=== PATIENT | male | born 1930 | race Caucasian/White ===

== ENCOUNTER 2018-02-05 09:47 | Observation (INO) ==
--- NOTE | 2018-02-05 10:12 | Emergency Department Note ---
Disposition Clinical Impression: Dizziness Headache Qualifiers: Headache type: unspecified Headache chronicity pattern: acute headache Intractability: not intractable Qualified Code(s): R51 - Headache Disposition: Admitted As Inpatient Condition: Undetermined Referrals: Lee Desai MD [Primary Care Provider] - Forms: ED Satisfaction Letter Time of Disposition: 11:41 Dizziness HPI - General Chief Complaint: ED Dizziness Stated Complaint: sudden onset dizziness Time Seen by Provider: 02/05/18 09:59 Source: patient Mode of arrival: wheelchair Limitations: no limitations Nursing Notes Reviewed: Yes Vital Signs Reviewed: Yes - History of Present Illness HPI Narrative: 87-year-old male with history of hypertension arrives to the emergency department complaining of onset of dizziness at roughly 2 AM last night. The patient also states that he had an episode he thinks earlier in the evening. The patient stood up and experienced this dizziness. He had no other associated symptoms area denies any chest pain, difficulty breathing, numbness, paresthesias, weakness in one side versus the other. The patient is complaining of a left frontal headache. He states that is new. Patient denies any previous history of dizziness like this in the past. No history of [place] or CVA in the past. Patient is resting comfortably at this time. The patient has an NIH of 0. The patient's symptoms started at least 8 hours ago so we will not activate a stroke alert. - Related Data Home Medications Medication Instructions Recorded Confirmed Allopurinol [Zyloprim 100 MG] 100 mg PO DAILY 02/05/18 02/05/18 Aspirin [Lo-Dose Aspirin EC] 81 mg PO DAILY 02/05/18 02/05/18 Atorvastatin [Lipitor] 10 mg PO DAILY 02/05/18 02/05/18 Dicyclomine [Bentyl] 20 mg PO BID 02/05/18 02/05/18 Docusate Sodium [Dok] 100 mg PO DAILY 02/05/18 02/05/18 Ergocalciferol (VITAMIN D2) 400 unit PO DAILY 02/05/18 02/05/18 [Vitamin D] Fish Oil/Dha/Epa [Fish Oil 1,200 1 cap PO DAILY 02/05/18 02/05/18 mg Fish Oil] Furosemide [Lasix] 20 mg PO DAILY 02/05/18 02/05/18 Glucosamine/D3/Boswellia Roselia 1 tab PO BID 02/05/18 02/05/18 [Osteo Bi-Flex Tablet] Insulin Glargine,Hum.rec.anlog 10 - 20 unit SQ HS 02/05/18 02/05/18 [Lantus Solostar] Insulin LISPRO [Humalog Kwikpen 4 - 6 unit SQ TID 02/05/18 02/05/18 U-100] Omeprazole [PriLOSEC] 20 mg PO DAILY 02/05/18 02/05/18 amLODIPine [Norvasc] 5 mg PO DAILY 02/05/18 02/05/18 Allergies Allergy/AdvReac Type Severity Reaction Status Date / Time No Known Allergies Allergy Verified 02/05/18 11:38 All systems ED: reviewed and negative except as stated. Constitutional: Denies: fever, chills, weakness ENT ED: Denies: congestion Cardiovascular: Denies: chest pain Respiratory: Denies: dyspnea Gastrointestinal: Denies: abdominal pain, nausea, vomiting Genitourinary: Denies: urgency, dysuria Musculoskeletal: Denies: back pain, neck pain Integumentary: Denies: rash Neurological: Reports: headache, vertigo. Denies: weakness, numbness, paresthesias, confusion, abnormal gait Psychiatric: Denies: anxiety Past Medical History - Past Medical History Attestation: Yes The following information was validated with the patient. Source: patient, old records reviewed Medical history: Reports: diabetes, hypertension, renal disease Surgical history: Reports: non-contributory Psychiatric history: Reports: no psych history - Social History Smoking Status: Never smoker Smokeless Tobacco Status: No Alcohol use: Reports: none Drug use: Reports: none Physical Exam - General Limitations: no limitations General appearance: alert, in no apparent distress - Head Head exam: atraumatic, normocephalic, normal inspection - Eye Eye exam: Present: normal appearance, PERRL, EOMI - ENT ENT exam: normal exam, normal oropharynx, mucous membranes moist - Neck Neck exam: Present: normal inspection, full ROM, trachea midline - Chest Chest inspection: Present: normal inspection, symmetric chest wall rise - Respiratory Respiratory exam: Present: normal lung sounds bilaterally - Cardiovascular Cardiovascular exam: Present: normal rhythm, bradycardia, normal heart sounds - Abdominal Exam Abdominal exam: Present: soft, Non-Tender. Absent: tenderness, distention, guarding, rebound, rigidity - Extremities Exam Extremities exam: Present: normal inspection, full ROM. Absent: tenderness, pedal edema - Neurological Exam Neurological exam: Present: alert, oriented X3, CN II-XII intact. Absent: motor sensory deficit - Expanded Neurological Exam Patient oriented to: Present: person, place, time Speech: Present: fluid speech Cranial nerves: EOM function (II, III, IV, ): Normal, facial sensation (V): Normal, facial palsy (VII): Normal Cerebellar function: finger to nose: Normal Motor strength - LUE: 5/5 Motor strength - RUE: 5/5 Motor strength - LLE: 5/5 Motor strength - RLE: 5/5 Sensory exam upper extremity: light touch: Normal Sensory exam lower extremity: light touch: Normal Coma Scale Eye Opening: Spontaneous Coma Scale Motor Response: Obeys Commands Coma Scale Verbal Response: Oriented Coma Scale Total: 15 - Skin Skin exam: Present: warm, dry, intact, normal color - Other Other exam information: HINTS exam negative. Course Vital Signs Temperature 97.5 F L 02/05/18 09:49 Pulse Rate 55 02/05/18 09:49 Respiratory Rate 18 02/05/18 09:49 Blood Pressure 178/110 02/05/18 09:49 O2 Sat by Pulse Oximetry 96 02/05/18 09:49 Temperature 97.5 F L 02/05/18 09:49 Pulse Rate 58 02/05/18 11:39 Respiratory Rate 21 02/05/18 11:39 Blood Pressure 181/91 02/05/18 11:39 O2 Sat by Pulse Oximetry 100 02/05/18 11:39 Oxygen Delivery Oxygen Delivery Room Air Dizziness - [facility] Narrative Medical decision making narrative: Workup in the emergency department demonstrates no acute process. The patient is slightly hypertensive and bradycardic. The patient always sits in the 60s to 50s heart rate according to his record. He does have a bigeminal type pattern on EKG. No ST elevation or ST depression. Labs are fairly unremarkable with the exception of the patient's kidney function which is baseline for him. He has no other neurologic deficits. Given the patient's severe dizziness, we will admit the patient to the hospital at this time for further workup and care likely further imaging. Patient was made aware and agrees to plan. No further questions or concerns noted at this time. The patient was given aspirin as well as labetalol for his blood pressure. He will be admitted to the hospital. Accepted by Dr. Sykes. - Lab Data Lab results reviewed: Yes I reviewed the patient's lab results. Result diagrams: 02/05/18 10:19 02/05/18 10:19 Lab Results 02/05/18 02/05/18 Range/Units 10:19 10:19 WBC 7.8 (4.3-11.1) K/mcL RBC 4.14 L (4.19-5.50) M/mcL Hgb 13.6 (12.9-16.9) g/dL Hct 40.4 (37.5-50.1) % MCV 97.6 (83.0-100.0) fL MCH 32.9 (28.0-33.3) pg MCHC 33.7 (31.6-35.5) g/dL RDW 13.0 (11.5-14.5) % Plt Count 224 (140-400) K/mcL MPV 9.9 (9.4-12.4) fL Immature Gran % 0.4 (0-4) % Seg Neutrophils % 75.9 % Lymphocytes % 17.5 % Monocytes % 5.2 % Eosinophils % 0.9 % Basophils % 0.1 % Neutrophils # 5.9 (1.6-8.9) K/mcL Lymphocytes # 1.4 (0.6-4.6) K/mcL Monocytes # 0.4 (0.0-1.3) K/mcL Eosinophils # 0.1 (0.0-0.6) K/mcL Basophils # 0.0 (0.0-0.2) K/mcL Sodium 136 (136-145) mEq/L Potassium 4.5 (3.5-5.1) mEq/L Chloride 103 (98-107) mEq/L Carbon Dioxide 25 (23-29) mEq/L BUN 39 H (8-23) mg/dL Creatinine 1.46 H (0.70-1.30) mg/dL Est GFR ( Amer) 55 L (> 60) Est GFR (Non-Af Amer) 45 L (> 60) BUN/Creatinine Ratio 27 H (6-26) Glucose 254 H (70-105) mg/dL Calculated Osmolality 300 (280-300) Calcium 9.5 (8.6-10.3) mg/dL Troponin I 0.03 (< 0.04) ng/mL - Radiology Data Radiology results reviewed: Yes I reviewed the patient's radiology results. Chest X-Ray 02/05/18 10:06 IMPRESSION: No acute cardiopulmonary disease. D/ / Fermín French MD / Fermín French MD Interpreting Provider: Fermín French MD Head CT 02/05/18 10:06 IMPRESSION: 1. No acute intracranial abnormality. 2. Mild age-appropriate diffuse atrophy with minimal chronic small vessel ischemic changes. D/ / Basim Pacheco MD / Basim Pacheco MD Interpreting Provider: Basim Pacheco MD - EKG Data EKG attestation: Yes I reviewed and interpreted this EKG. EKG results narrative: Heart rate 61 bpm. Sinus Bradycardia with a bigeminal type pattern. No ST elevation or ST depression noted. Patient's bigeminal pattern is new for the patient. No previous symptoms or findings on EKG from 02/19/2013.
--- NOTE | 2018-02-05 10:21 | Emergency Department Note ---
Disposition Clinical Impression: Dizziness, Headache Disposition: Admitted As Inpatient Condition: Undetermined Referrals: Lee Desai MD [Primary Care Provider] - Forms: ED Satisfaction Letter General Adult HPI - General Chief complaint: ED Dizziness Stated complaint: sudden onset dizziness Time Seen by Provider: 02/05/18 09:59 Source: patient Mode of arrival: wheelchair Limitations: no limitations Nursing Notes Reviewed: Yes Vital Signs Reviewed: Yes - History of Present Illness Pain Scale: 0 - Related Data Home Medications Medication Instructions Recorded Confirmed Allopurinol [Zyloprim 100 MG] 100 mg PO DAILY 02/05/18 02/05/18 Aspirin [Lo-Dose Aspirin EC] 81 mg PO DAILY 02/05/18 02/05/18 Atorvastatin [Lipitor] 10 mg PO DAILY 02/05/18 02/05/18 Dicyclomine [Bentyl] 20 mg PO BID 02/05/18 02/05/18 Docusate Sodium [Dok] 100 mg PO DAILY 02/05/18 02/05/18 Ergocalciferol (VITAMIN D2) 400 unit PO DAILY 02/05/18 02/05/18 [Vitamin D] Fish Oil/Dha/Epa [Fish Oil 1,200 1 cap PO DAILY 02/05/18 02/05/18 mg Fish Oil] Furosemide [Lasix] 20 mg PO DAILY 02/05/18 02/05/18 Glucosamine/D3/Boswellia Roselia 1 tab PO BID 02/05/18 02/05/18 [Osteo Bi-Flex Tablet] Insulin Glargine,Hum.rec.anlog 10 - 20 unit SQ HS 02/05/18 02/05/18 [Lantus Solostar] Insulin LISPRO [Humalog Kwikpen 4 - 6 unit SQ TID 02/05/18 02/05/18 U-100] Omeprazole [PriLOSEC] 20 mg PO DAILY 02/05/18 02/05/18 amLODIPine [Norvasc] 5 mg PO DAILY 02/05/18 02/05/18 Allergies Allergy/AdvReac Type Severity Reaction Status Date / Time No Known Allergies Allergy Verified 02/05/18 11:38 Constitutional: Denies: fever, chills, weakness ENT ED: Denies: congestion Cardiovascular: Denies: chest pain Respiratory: Denies: dyspnea Gastrointestinal: Denies: abdominal pain, nausea, vomiting Genitourinary: Denies: urgency, dysuria Musculoskeletal: Denies: back pain, neck pain Integumentary: Denies: rash Neurological: Reports: headache, vertigo. Denies: weakness, numbness, paresthesias, confusion, abnormal gait Psychiatric: Denies: anxiety Past Medical History - Past Medical History Medical history: Reports: diabetes, hypertension, renal disease Surgical history: Reports: non-contributory Psychiatric history: Reports: no psych history - Social History Smoking Status: Never smoker Smokeless Tobacco Status: No Alcohol use: Reports: none Drug use: Reports: none Physical Exam - General Limitations: no limitations General appearance: alert, in no apparent distress Course Vital Signs Temperature 97.5 F L 02/05/18 09:49 Pulse Rate 55 02/05/18 09:49 Respiratory Rate 18 02/05/18 09:49 Blood Pressure 178/110 02/05/18 09:49 O2 Sat by Pulse Oximetry 96 02/05/18 09:49 Temperature 97.5 F L 02/05/18 09:49 Pulse Rate 58 02/05/18 11:39 Respiratory Rate 21 02/05/18 11:39 Blood Pressure 181/91 02/05/18 11:39 O2 Sat by Pulse Oximetry 100 02/05/18 11:39 Oxygen Delivery Oxygen Delivery Room Air Medical Decision Making - MDM Narrative Medical decision making narrative: This documentation is done with the assistance of Dragon dictation. Despite efforts made to ensure accuracy, there may be inaccuracies in spine specialist or spelling and typographical errors. Chest X-Ray 02/05/18 10:06 IMPRESSION: No acute cardiopulmonary disease. D/ / Fermín French MD / Fermín French MD Interpreting Provider: Fermín French MD 1130 hrs.: Patient's labs are returning. Waiting on his CT. That admission. He is stable at this time. Chest X-Ray 02/05/18 10:06 IMPRESSION: No acute cardiopulmonary disease. D/ / Fermín French MD / Fermín French MD Interpreting Provider: Fermín French MD Head CT 02/05/18 10:06 IMPRESSION: 1. No acute intracranial abnormality. 2. Mild age-appropriate diffuse atrophy with minimal chronic small vessel ischemic changes. D/ / Basim Pacheco MD / Basim Pacheco MD Interpreting Provider: Basim Pacheco MD 1130 hrs.: We will treat his elevated blood pressure. Speaking with hospitalist for admission. Patient's in agreement with this plan. Impression is weakness, ataxia and dizziness rule out CVA. 1155 hrs.: Possible says accepted patient and requested an MRI which we will order and he can have that done on the floor. - Lab Data Result diagrams: 02/05/18 10:19 02/05/18 10:19 Lab Results 02/05/18 02/05/18 02/05/18 Range/Units 10:19 10:19 11:47 WBC 7.8 (4.3-11.1) K/mcL RBC 4.14 L (4.19-5.50) M/mcL Hgb 13.6 (12.9-16.9) g/dL Hct 40.4 (37.5-50.1) % MCV 97.6 (83.0-100.0) fL MCH 32.9 (28.0-33.3) pg MCHC 33.7 (31.6-35.5) g/dL RDW 13.0 (11.5-14.5) % Plt Count 224 (140-400) K/mcL MPV 9.9 (9.4-12.4) fL Immature Gran % 0.4 (0-4) % Seg Neutrophils % 75.9 % Lymphocytes % 17.5 % Monocytes % 5.2 % Eosinophils % 0.9 % Basophils % 0.1 % Neutrophils # 5.9 (1.6-8.9) K/mcL Lymphocytes # 1.4 (0.6-4.6) K/mcL Monocytes # 0.4 (0.0-1.3) K/mcL Eosinophils # 0.1 (0.0-0.6) K/mcL Basophils # 0.0 (0.0-0.2) K/mcL Sodium 136 (136-145) mEq/L Potassium 4.5 (3.5-5.1) mEq/L Chloride 103 (98-107) mEq/L Carbon Dioxide 25 (23-29) mEq/L BUN 39 H (8-23) mg/dL Creatinine 1.46 H (0.70-1.30) mg/dL Est GFR ( Amer) 55 L (> 60) Est GFR (Non-Af Amer) 45 L (> 60) BUN/Creatinine Ratio 27 H (6-26) Glucose 254 H (70-105) mg/dL POC Glucose 195 H (70-99) mg/dL Calculated Osmolality 300 (280-300) Calcium 9.5 (8.6-10.3) mg/dL Troponin I 0.03 (< 0.04) ng/mL Critical Care Time Critical Care Time: Yes Total Critical Care Time: 30 Attestation: Critical care time is excluding any separately billable procedures. Attestation Statement - Attestation Attestation: I examined this patient and my medical decision-making was reviewed with the Resident Physician. I agree with the documented findings, disposition and treatment plan as described except to the extent set forth below. Patient seen on arrival by myself and Dr. Espinoza with EMS. Patient had sudden onset of dizziness last evening. He states this is been more than 8 hours ago. He says he thinks he has something with his and her ear. He has positive Agrcia-Williamson maneuver. and his LENY exam is negative. I think this is more of a central process. We will CT has had check labs reassess and most likely admission. He is in agreement with this plan.
[2018-02-05 10:58] LABS: Basophils % 0.1 %; Eosinophils # 0.1 K/mcL (0.0-0.6); Eosinophils % 0.9 %; Hematocrit 40.4 % (37.5-50.1); Hemoglobin 13.6 g/dL (12.9-16.9); Immature Granulocytes % 0.4 % (0-4); Lymphocytes # 1.4 K/mcL (0.6-4.6); Lymphocytes % 17.5 %; Mean Corpuscular HGB Conc 33.7 g/dL (31.6-35.5); Mean Corpuscular Hemoglobin 32.9 pg (28.0-33.3); Mean Corpuscular Volume 97.6 fL (83.0-100.0); Mean Platelet Volume 9.9 fL (9.4-12.4); Monocytes # 0.4 K/mcL (0.0-1.3); Monocytes % 5.2 %; Neutrophils # 5.9 K/mcL (1.6-8.9); Platelet Count 224 K/mcL (140-400); Red Blood Count 4.14 M/mcL (4.19-5.50); Segmented Neutrophils % 75.9 %
[2018-02-05 11:17] LABS: Troponin I 0.03 ng/mL (< 0.04)
[2018-02-05 11:20] LABS: Calcium 9.5 mg/dL (8.6-10.3); Potassium 4.5 mEq/L (3.5-5.1)
[2018-02-05] MEDS ORDERED: *HR* Labetalol 20 MG/4 ML SYRINGE IVP STA (11:35)
[2018-02-05] MEDS ORDERED: Aspirin 325 MG TABLET PO ONE (11:38)
[2018-02-05] MEDS ORDERED: Acetaminophen 325 MG TABLET PO PRN (12:53)
[2018-02-05] MEDS ORDERED: *HR* HYDROcodone/Acet 5/325 mg TABLET PO PRN (12:53)
[2018-02-05] MEDS ORDERED: Naloxone 0.4 MG/ML INJ IVP PRN (12:53)
[2018-02-05] MEDS ORDERED: Dextrose Gel 15 GM/37.5 ML TUBE PO PRN ×2 (13:04)
[2018-02-05] MEDS ORDERED: D5% in Water 1,000 ML IVC PRN (13:04)
[2018-02-05] MEDS ORDERED: *HR* Dextrose 50 % in Water (Syg) 50 ML SYRINGE IVP PRN (13:04)
--- NOTE | 2018-02-05 13:47 | Internal Med History&Physical ---
<BeauAlexi Otoole - Last Filed: 02/05/18 14:13> Date of Encounter: 02/05/18 Time of Encounter: 12:30 Internal Medicine - H&P: HPI Chief complaint: Dizziness/Pre-syncope Admitted From: Emergency Dept Plans for Post Hospital Care: Home History of present illness: Mr. Naranjo is a 87 year old male w/PMH of diabetes controlled with insulin, hypertension, HLD, gout, and CKD presents from the ED w/CC of severe dizziness and feelings of pre-syncope this morning. Pt. states he experienced sx while sitting up in bed and standing up. Sx alleviated when he laid down. Aggravating factors of positional changes. Denies previous hx or hx of CVA/TIA/Vertigo. Pt. does report irregular HR that he states is transient and is not anticoagulated for. Reports TOM and occasional palpitations but denies vision changes, sinus pressure/congestion, cough, chest congestion, nausea, vomiting, recent illness, chest pain, SOB, abdominal pain, diarrhea, constipation, numbness, tingling, unusual bleeding, or syncope Past Med Surg Social Fam HX - Past Medical History Source: patient, old records reviewed Medical history: diabetes, hypertension, renal disease, other (Gout) Psychiatric history: no psych history - Past Surgical History Surgical History: no surgical history - Social History Smoking Status: Never smoker Smokeless Tobacco Status: No Alcohol use: none Drug use: none Occupational status: retired Current living situation: Home Activity Level: Uses cane/walker Recent Out of Country Travel Within the Last 8 Weeks: No Exposure or Possible Exposure to Illness During Travel: No - Family History Father Race: Family Member Ethnicity: Non- Living Status: Age at : 80 Cause of : [place] Hx Family Cardiac Disorders: Yes ([place]) Hx Family Endocrine Disorder: Yes (DM) Mother Race: Family Member Ethnicity: Non- Living Status: Age at : 89 Cause of : Gastric problems Hx Family GI Disorders: Yes (Gastric/bowel issues) Brother Race: Family Member Ethnicity: Non- Living Status: Age at : 50 Cause of : Suicide Hx Family Psychosocial Disorders: Yes (Depression/Suicide) Sister Race: Family Member Ethnicity: Non- Living Status: Cause of : Meningitis Internal Medicine - H&P: Meds Allopurinol [Zyloprim 100 MG] 100 mg PO DAILY 02/05/18 [History] Aspirin [Lo-Dose Aspirin EC] 81 mg PO DAILY 02/05/18 [History] Atorvastatin [Lipitor] 10 mg PO DAILY 02/05/18 [History] Dicyclomine [Bentyl] 20 mg PO BID 02/05/18 [History] Docusate Sodium [Dok] 100 mg PO DAILY 02/05/18 [History] Ergocalciferol (VITAMIN D2) [Vitamin D] 400 unit PO DAILY 02/05/18 [History] Fish Oil/Dha/Epa [Fish Oil 1,200 mg Fish Oil] 1 cap PO DAILY 02/05/18 [History] Furosemide [Lasix] 20 mg PO DAILY 02/05/18 [History] Glucosamine/D3/Boswellia Roselia [Osteo Bi-Flex Tablet] 1 tab PO BID 02/05/18 [ History] Insulin Glargine,Hum.rec.anlog [Lantus Solostar] 10 - 20 unit SQ HS 02/05/18 [ History] Insulin LISPRO [Humalog Kwikpen U-100] 4 - 6 unit SQ TID 02/05/18 [History] Omeprazole [PriLOSEC] 20 mg PO DAILY 02/05/18 [History] amLODIPine [Norvasc] 5 mg PO DAILY 02/05/18 [History] 3 Allergy/AdvReac Type Severity Reaction Status Date / Time No Known Allergies Allergy Verified 02/05/18 11:38 All Systems PM: A 10-system review of systems was performed and is negative for pertinent findings except as documented above in the HPI. - Constitutional Constitutional: no chills, no fever(s), no night sweats - EENT Eyes: no change in vision, no discharge, no pain, no photophobia Ears: no ear discharge, no ear pain, no tinnitus Nose, mouth and throat: no dysphagia, no nasal discharge, no neck pain, no sore throat - Breasts Breasts: as per HPI - Cardiovascular Cardiovascular ROS IM: as per HPI, irregular heart rhythm, lightheadedness, palpitations (Intermittent and transient), no chest pain, no diaphoresis, no dyspnea, no syncope - Respiratory Respiratory: as per HPI, no cough, no dyspnea, no wheezing, no excessive phlegm production - Gastrointestinal Gastrointestinal: no abdominal pain, no diarrhea, no hematemesis, no hematochezia, no melena, no nausea, no vomiting - Genitourinary Genitourinary ROS male: as per HPI - Musculoskeletal Musculoskeletal ROS IM: no numbness, no tingling - Integumentary Integumentary IM: no rash, no unusual bruising - Neurological Neurological ROS: as per HPI, disequilibrium, dizziness, headache(s), no confusion, no convulsions, no focal weakness, no numbness, no tingling, no tremor(s) - Psychiatric Psychiatric: as per HPI - Endocrine Endocrine IM: as per HPI - Hematologic/Lymphatic Hematologic/Lymphatic: no easy bruising - Allergic/Immunologic Allergic/Immunologic: as per HPI - Constitutional Vitals: Temp Pulse Resp BP Pulse Ox 98 F 56 20 147/73 97 02/05/18 13:00 02/05/18 13:00 02/05/18 13:00 02/05/18 13:00 02/05/18 13:05 General appearance: Present: cooperative, A&O X 3, pleasant, no acute distress, answers questions appropriately - Head Head exam: Present: atraumatic, normocephalic - Eye Eye exam: Present: PERRL, conjuntiva pink, sclera anicteric Pupils: Present: PERRL - ENT ENT exam: Present: normal exam - Neck Neck exam general surgery: Present: normal inspection, supple, trachea midline. Absent: lymphadenopathy - Respiratory Respiratory exam: Present: CTAB. Absent: accessory muscle use, rales, rhonchi, wheezes - Cardiovascular Cardiovascular exam: Present: irregular rhythm - GI/Abdominal GI/Abdominal exam: Present: normal bowel sounds, soft, no peritoneal signs. Absent: distended, tenderness - Rectal Rectal exam: Present: deferred - Additional comments: exam deferred. - Extremities Exam Extremities exam: Present: warm, radial pulses palpable and symmetrical. Absent : calf tenderness, cyanotic, pedal edema - Back Exam Back exam: Present: normal inspection - Neurological Exam Neurological exam: Present: alert, CN II-XII intact, oriented X3, no focal deficits. Absent: pronater drift, facial droop, speech deficit - Psychiatric Psychiatric exam: Present: normal affect, normal mood - Skin Skin exam: Present: dry, intact Internal Med - H&P Results - Labs CBC & Chem 7: 02/05/18 10:19 02/05/18 10:19 - Diagnostic Studies CT scan - head Additional comments: Impressions Head CT 02/05/18 10:06 IMPRESSION: 1. No acute intracranial abnormality. 2. Mild age-appropriate diffuse atrophy with minimal chronic small vessel ischemic changes. D/ / Basim Pacheco MD / Basim Pacheco MD Interpreting Provider: Basim Pacheco MD Chest x-ray Additional comments: Impressions Chest X-Ray 02/05/18 10:06 IMPRESSION: No acute cardiopulmonary disease. D/ / Fermín French MD / Fermín French MD Interpreting Provider: Fermín French MD - Assessment and plan (1) Dizziness Current Visit: Yes Status: Acute Assessment and plan: Acute dizziness/vertigo-type sx that began this morning. Denies previous hx or hx of CVA/TIA/Vertigo. Reports TOM w/sx. Falls/safety precautions. Orthostatic BPs/VS ordered. Bilateral carotid Dopplers ordered. CT of head/brain unremarkable. MRA/MRI of head/brain ordered. Stair-step pain medications for pain mgmt. Neurology consult ordered and discussed w/Dr. Sauer and I appreciate the consult. Pt. discussed w/Dr. Blackman who agrees w/plan of care. Pt. is high risk for further morbidity and sx d/t new onset of dizziness/pre-syncope, irregular HR w/o anticoagulation, hx, and risk factors. Observation. (2) Headache Current Visit: Yes Status: Acute Assessment and plan: Acute headache r/t current dizziness and vertigo-type sx. Denies hx of TOM. CT of head/brain unremarkable. MRA/MRI of head/brain ordered. Stair-step pain medications for pain mgmt. Neurology consult ordered and discussed w/Dr. Sauer and I appreciate the consult. Qualifiers: Headache type: unspecified Headache chronicity pattern: acute headache Intractability: not intractable Qualified Code(s): R51 - Headache (3) Diabetes Current Visit: Yes Status: Chronic Assessment and plan: Hx of chronic diabetes controlled w/insulin. Will continue pts. HS dosing of insulin and add low-dose correction insulin sliding scale w/hypoglycemic protocol. A1c in a.m. labs. BG checks ACHS. Qualifiers: Diabetes mellitus type: type 2 Diabetes mellitus skilled nursing insulin use: unspecified skilled nursing insulin use status Diabetes mellitus complication status : with unspecified complications Qualified Code(s): E11.8 - Type 2 diabetes mellitus with unspecified complications (4) HTN (hypertension) Current Visit: Yes Status: Chronic Assessment and plan: Hx of chronic HTN. Monitor pt. and VS. Continue pts. Norvasc. Qualifiers: Hypertension type: essential hypertension Qualified Code(s): I10 - Essential (primary) hypertension (5) HLD (hyperlipidemia) Current Visit: Yes Status: Chronic Assessment and plan: Hx of chronic HLD. Lipid panel in a.m. labs. Continue pts. Lipitor. Qualifiers: Hyperlipidemia type: pure hypercholesterolemia Qualified Code(s): E78.00 - Pure hypercholesterolemia, unspecified; E78.0 - Pure hypercholesterolemia (6) CKD (chronic kidney disease) stage 3, GFR 30-59 ml/min Current Visit: Yes Status: Chronic Assessment and plan: Hx of chronic CKD. Currently stage III w/GFR of 45 and creatinine of 1.46. Will use IV fluids judiciously and avoid nephrotoxins. Monitor I&O. (7) Gout Current Visit: Yes Status: Chronic Assessment and plan: Hx of chronic gout. Continue pts. Allopurinol. Qualifiers: Gout site: unspecified site Gout etiology: due to renal impairment Chronicity: unspecified Qualified Code(s): M10.30 - Gout due to renal impairment, unspecified site (8) DVT prophylaxis Current Visit: Yes Status: Acute Assessment and plan: Heparin 5,000 units SQ Q8 for DVT prophylaxis. Monitor pt. for signs of bleeding. (9) Irregular heart beat Current Visit: Yes Status: Acute Assessment and plan: Acute on chronic irregular HR that pt. states he has had for some time and is intermittent/transient. Reports some palpitations that resolve. Denies hx of anticoagulation. Takes 81 mg aspirin daily. Echocardiogram ordered. EKG. Cardiology consult ordered and discussed w/Dr. Campuzano regarding irregular HR and I appreciate the consult. Continue daily aspirin. Continuous cardiac telemetry. - Time Spent With Patient Total time spent is greater than 50% in coordination of care (as documented) at patient's floor/unit and/or counseling patient: 25 - 35 minutes <Joaquin Blackman - Last Filed: 02/05/18 23:48> Date of Encounter: 02/05/18 Internal Medicine - H&P: HPI History of present illness: Mr. Naranjo is a 87 year old male All Systems PM: A 10-system review of systems was performed and is negative for pertinent findings except as documented above in the HPI. - Constitutional Vitals: Temp Pulse Resp BP Pulse Ox 97.5 F L 57 16 186/84 98 02/05/18 19:17 02/05/18 19:17 02/05/18 19:17 02/05/18 19:17 02/05/18 19:17 Internal Med - H&P Results - Labs CBC & Chem 7: 02/05/18 10:19 02/05/18 10:19 - Attending Attestation I examined this patient and my medical decision-making was reviewed with the Resident Physician/[employer] ASSEMBLER. I agree with the documented findings, disposition and treatment plan as described except to the extent set forth below. I do been examined this patient along with the patient's rn discharge. At this point etiology for the presenting symptom is unclear. We will do extensive workup and follow-up with the patient. - Assessment and plan (1) Dizziness Current Visit: Yes Status: Acute (2) Headache Current Visit: Yes Status: Acute Qualifiers: Headache type: unspecified Headache chronicity pattern: acute headache Intractability: not intractable Qualified Code(s): R51 - Headache (3) Diabetes Current Visit: Yes Status: Chronic Qualifiers: Diabetes mellitus type: type 2 Diabetes mellitus superintendent [employer] insulin use: unspecified skilled nursing insulin use status Diabetes mellitus complication status : with unspecified complications Qualified Code(s): E11.8 - Type 2 diabetes mellitus with unspecified complications (4) HTN (hypertension) Current Visit: Yes Status: Chronic Qualifiers: Hypertension type: essential hypertension Qualified Code(s): I10 - Essential (primary) hypertension (5) CKD (chronic kidney disease) stage 3, GFR 30-59 ml/min Current Visit: Yes Status: Chronic (6) DVT prophylaxis Current Visit: Yes Status: Acute (7) Gout Current Visit: Yes Status: Chronic Qualifiers: Gout site: unspecified site Gout etiology: due to renal impairment Chronicity: unspecified Qualified Code(s): M10.30 - Gout due to renal impairment, unspecified site (8) HLD (hyperlipidemia) Current Visit: Yes Status: Chronic Qualifiers: Hyperlipidemia type: pure hypercholesterolemia Qualified Code(s): E78.00 - Pure hypercholesterolemia, unspecified; E78.0 - Pure hypercholesterolemia (9) Irregular heart beat Current Visit: Yes Status: Acute - Time Spent With Patient Total time spent is greater than 50% in coordination of care (as documented) at patient's floor/unit and/or counseling patient:
[2018-02-05] MEDS: *HR* Heparin 5,000 UNIT/ML VIAL SQ SCH ×2 (15:27→21:50)
[2018-02-05] MEDS: 0.9 % Sodium Chloride 1,000 ML IVC SCH (15:27)
[2018-02-05] MEDS: Insulin LISPRO 300 UNITS/3 ML VIAL SQ SCH ×3 (17:16→21:51)
[2018-02-05] MEDS: Insulin DETEMIR 100 UNIT/ML X5UNITS SQ SCH (21:51)
[2018-02-06 03:16] LABS: Hematocrit 36.1 % (37.5-50.1); Hemoglobin 12.5 g/dL (12.9-16.9); Immature Granulocytes % 0.3 % (0-4); Lymphocytes % 34.8 %; Mean Corpuscular HGB Conc 34.6 g/dL (31.6-35.5); Mean Corpuscular Hemoglobin 33.2 pg (28.0-33.3); Mean Corpuscular Volume 95.8 fL (83.0-100.0); Mean Platelet Volume 9.6 fL (9.4-12.4); Platelet Count 216 K/mcL (140-400); Red Blood Count 3.77 M/mcL (4.19-5.50); Segmented Neutrophils % 55.8 %
[2018-02-06 03:17] LABS: Basophils % 0.2 %; Eosinophils # 0.2 K/mcL (0.0-0.6); Eosinophils % 2.1 %; Lymphocytes # 3.5 K/mcL (0.6-4.6); Monocytes # 0.7 K/mcL (0.0-1.3); Monocytes % 6.8 %; Neutrophils # 5.6 K/mcL (1.6-8.9)
[2018-02-06 03:38] LABS: Alanine Aminotransferase 25 Units/L (7-52); Albumin 3.8 g/dL (3.5-5.7); Alkaline Phosphatase 112 Units/L (34-104); Aspartate Amino Transferase 24 Units/L (13-39); BUN/Creatinine Ratio 26 (6-26); Bilirubin,Total 0.5 mg/dL (0.3-1.0); Blood Urea Nitrogen 34 mg/dL (8-23); Carbon Dioxide 25 mEq/L (23-29); Chloride 109 mEq/L (98-107); Chol/HDL Ratio 2.8 (0-4.9); Cholesterol 116 mg/dL (< 200); Globulin 1.9 g/dL (2.4-3.5); Glucose 67 mg/dL (70-105); HDL Cholesterol 41 mg/dL (40-59); LDL Cholesterol,Calculated 52 mg/dL (0-99); Magnesium 1.8 mg/dL (1.6-2.6); Osmolality,Calculated 296 (280-300); Phosphorous 3.8 mg/dL (2.7-4.5); Potassium 3.5 mEq/L (3.5-5.1); Sodium 140 mEq/L (136-145); Total Protein 5.7 g/dL (6.4-8.9); Triglycerides 114 mg/dL (< 150); eGFR For African Americans > 60 (> 60); eGFR For Non-African Americans 52 (> 60)
[2018-02-06] MEDS: *HR* Heparin 5,000 UNIT/ML VIAL SQ SCH ×3 (05:36→21:33)
[2018-02-06] MEDS ORDERED: Furosemide 20 MG TABLET PO SCH (09:00)
[2018-02-06] MEDS ORDERED: amLODIPine 5 MG TABLET PO SCH (09:00)
[2018-02-06 09:02] LABS: Estimated Average Glucose 186 mg/dl; Hemoglobin A1C 8.1 %
[2018-02-06] MEDS: Insulin LISPRO 300 UNITS/3 ML VIAL SQ SCH ×4 (09:19→21:28)
[2018-02-06] MEDS: Aspirin Enteric Coated 81 MG Tablet PO SCH (09:25)
[2018-02-06] MEDS: Cholecalciferol (D-3) 1,000 UNIT TABLET PO SCH (09:26)
[2018-02-06] MEDS: (Fish Oil/Dha/Epa [Fish Oil 1,200 Mg Fish Oil] 1 CAP) PO SCH (09:26)
--- NOTE | 2018-02-06 11:40 | Cardiology Consult Note ---
<Naun Pickard - Last Filed: 02/06/18 15:39> Date of Encounter: 02/06/18 Time of Encounter: 08:35 Assessment and Plan (1) Pre-syncope Current Visit: Yes Status: Acute Symptoms to to be secondary to orthostatic hypotension or sinus arrhythmia. Initial orthostatic vitals appear difficult to interpret, will recheck. - Repeat: lay 143/70, sit 168/79, stand 146/71, then 153/79 - mild dizziness upon standing MRI brain, CT head, chest x-ray showed no acute abnormalities. TTE: LVEF 60-65%, mild diastolic dysfunction, normal RV function Carotid ultrasound results pending EKG shows sinus arrhythmia with bradycardia - PAC's and non-specific ST changes Trop negative. No anemia or electrolyte abnormalities. Suspect this is likely related to orthostasis due to Norvasc and Lasix - he was swelling from taking Norvasc and then was started on Lasix for swelling Can not switch to DANIEL/ARB in setting of CKD. Will start low dose BB. Plan: - stop Lasix and Amlodipine - start Carvedilol 3.125 mg BID, with hold parameters of SBP <100 and HR <45 - check HR response to walking to evaluate possible need for pacemaker (2) Sinus arrhythmia Current Visit: Yes Status: Acute EKG shows sinus arrhythmia with bradycardia - PAC's and non-specific ST changes PAC's noted on telemetry Plan as above (3) HTN (hypertension) Current Visit: Yes Status: Chronic Change medications as above Qualifiers: Hypertension type: essential hypertension Qualified Code(s): I10 - Essential (primary) hypertension (4) HLD (hyperlipidemia) Current Visit: Yes Status: Chronic Continue statin Qualifiers: Hyperlipidemia type: pure hypercholesterolemia Qualified Code(s): E78.00 - Pure hypercholesterolemia, unspecified; E78.0 - Pure hypercholesterolemia (5) CKD (chronic kidney disease) stage 3, GFR 30-59 ml/min Current Visit: Yes Status: Chronic Discussion w patient/family: The assessment and plan as outlined above was discussed with the patient and/or family members who expressed understanding and agreement. All questions were answered. Thank you for involving us in the care of your patient. Please call with any questions. History of Present Illness Consult date: 02/05/18 Requesting physician: Alexi Yanez Consult reason: Dizziness with irregular HR Chief complaint: Dizziness History of present illness: Mr. Naranjo is a 87 year old male with PMH of HTN, HLD, DM, CKD stage 3, and bradycardia, presented to the hospital with chief complaint of dizziness and feeling like he was going to pass out. States he had these symptoms while sitting up out of bed yesterday morning. Then they persisted upon standing. He states that he feels lightheaded and unstable with position changes. Symptoms improved with lying down. He denies other symptoms. Denies headache, syncope, falls, palpitations, chest pain/pressure, dyspnea, or worsening lower extremity edema. He states that he normally has mild lower extremity edema, since starting Lasix several weeks ago. Currently takes Norvasc for hypertension. He states he has never had any lightheadedness like this before. He was told in the past that he has a slow pulse, and sometimes can be regular. He does not follow with any bi analyst. Past Med Surg Social Fam HX - Past Medical History Medical history: diabetes, hypertension, renal disease, other (Gout) Psychiatric history: no psych history - Past Surgical History Surgical History: no surgical history - Social History Smoking Status: Never smoker Smokeless Tobacco Status: No Alcohol use: none Drug use: none - Family History Father Race: Family Member Ethnicity: Non- Living Status: Age at : 80 Cause of : [place] Hx Family Cardiac Disorders: Yes ([place]) Hx Family Endocrine Disorder: Yes (DM) Mother Race: Family Member Ethnicity: Non- Living Status: Age at : 89 Cause of : Gastric problems Hx Family GI Disorders: Yes (Gastric/bowel issues) Brother Race: Family Member Ethnicity: Non- Living Status: Age at : 50 Cause of : Suicide Hx Family Psychosocial Disorders: Yes (Depression/Suicide) Sister Race: Family Member Ethnicity: Non- Living Status: Cause of : Meningitis Medications and Allergies Allopurinol [Zyloprim 100 MG] 100 mg PO DAILY 02/05/18 [History] Aspirin [Lo-Dose Aspirin EC] 81 mg PO DAILY 02/05/18 [History] Atorvastatin [Lipitor] 10 mg PO DAILY 02/05/18 [History] Dicyclomine [Bentyl] 20 mg PO BID 02/05/18 [History] Docusate Sodium [Dok] 100 mg PO DAILY 02/05/18 [History] Ergocalciferol (VITAMIN D2) [Vitamin D] 400 unit PO DAILY 02/05/18 [History] Fish Oil/Dha/Epa [Fish Oil 1,200 mg Fish Oil] 1 cap PO DAILY 02/05/18 [History] Furosemide [Lasix] 20 mg PO DAILY 02/05/18 [History] Glucosamine/D3/Boswellia Roselia [Osteo Bi-Flex Tablet] 1 tab PO BID 02/05/18 [ History] Insulin Glargine,Hum.rec.anlog [Lantus Solostar] 10 - 20 unit SQ HS 02/05/18 [ History] Insulin LISPRO [Humalog Kwikpen U-100] 4 - 6 unit SQ TID 02/05/18 [History] Omeprazole [PriLOSEC] 20 mg PO DAILY 02/05/18 [History] amLODIPine [Norvasc] 5 mg PO DAILY 02/05/18 [History] 3 Allergy/AdvReac Type Severity Reaction Status Date / Time No Known Allergies Allergy Verified 02/05/18 11:38 All Systems Review: The remainder of the systems were reviewed and are negative Physical Examination Vital Signs, Last 4 Hours Temp Pulse Resp BP Pulse Ox 02/06/18 11:07 98.0 F 56 20 156/73 99 General: Conversant, No Apparent Distress HEENT: Atraumatic, Normocephaly, Mucus Membranes Moist Neck: No JVD, Normal carotid pulses Cardiac: Normal S1 and S2, No Murmur, Other (Regular with skipped beats) Lungs: Normal Breath Sounds, No Wheeze, Rales, Rhonchi Neuro: Alert and responsive, No focal deficits noted Abdomen: Soft, Non-Tender Skin: No rashes noted on visualized skin Musculoskeletal: No Chest Wall Tenderness Extremities: No Clubbing, No Cyanosis, No Edema, Normal Pulses Results 02/06/18 03:07 02/06/18 03:07 Lab Results 02/06/18 02/06/18 03:07 03:07 WBC 10.0 Hgb 12.5 L Hct 36.1 L Plt Count 216 Sodium 140 Potassium 3.5 Chloride 109 H Carbon Dioxide 25 BUN 34 H Creatinine 1.31 H Glucose 67 L Calcium 9.0 Magnesium 1.8 Total Bilirubin 0.5 AST 24 ALT 25 Alkaline Phosphatase 112 H Consult Discharge Plan - Plan Referrals: Lee Desai MD [Primary Care Provider] - <Jacinto Campuzano - Last Filed: 02/06/18 22:17> Date of Encounter: 02/06/18 Time of Encounter: 17:00 - Attending Attestation I examined this patient and my medical decision-making was reviewed with the Resident Physician. I agree with the documented findings, disposition and treatment plan as described except to the extent set forth below. CC: Dizziness HPI: Pt reports sudden onset of dizziness when getting out of bed this morning, reports sat up quickly to use restroom, felt very lightheaded and dizzy, felt like he was going to pass out, grabbed the covers and held on, waited thirty to forty seconds for sensation to pass. He felt similar sensation when changed from sitting to standing, not as severe, was able to hold on for several minutes before the sensation passed. He has had similar episodes with change in position from lying to sitting and sitting to standing, which were not as severe, and passes very quickly. He denies chest pain, palpitations or shortness of breath with these events. He is now able to sit up with help, reports is dizzy just for a few seconds before symptoms resolve. PMH: Reviewed PE: Agree with findings as above, adding pt is morbidly obese and is mildy hard of hearing, has frequent ectopics per auscultation.Si IMP: 1. Orthostatic hypotension, unclear etiology, responding to fluid challenge, symptoms improving 2. Sinus arrhythmia: will continue to monitor, some question of A fib on rhythm strips 3. Benign Essential hypertension: not fully controlled, will continue to adust bp meds as required, added low dose Coreg for better bp control, lasix and amlodipine on hold, may be contributing to orthostatic symptoms. Further recommendations pending cardiac imaging and sequential enzemes. Assessment and Plan Discussion w patient/family: The assessment and plan as outlined above was discussed with the patient and/or family members who expressed understanding and agreement. All questions were answered. Thank you for involving us in the care of your patient. Please call with any questions. History of Present Illness History of present illness: Mr. Naranjo is a 87 year old male All Systems Review: The remainder of the systems were reviewed and are negative Physical Examination Vital Signs, Last 4 Hours Temp Pulse Resp BP Pulse Ox 02/06/18 19:21 98.0 F 56 16 143/96 96 Results 02/06/18 03:07 02/06/18 03:07 Lab Results 02/06/18 02/06/18 03:07 03:07 WBC 10.0 Hgb 12.5 L Hct 36.1 L Plt Count 216 Sodium 140 Potassium 3.5 Chloride 109 H Carbon Dioxide 25 BUN 34 H Creatinine 1.31 H Glucose 67 L Calcium 9.0 Magnesium 1.8 Total Bilirubin 0.5 AST 24 ALT 25 Alkaline Phosphatase 112 H
--- NOTE | 2018-02-06 12:39 | Neurology - Consult Note ---
Date of Encounter: 02/06/18 Time of Encounter: 12:39 Assessment and Plan (1) Dizziness Current Visit: Yes Status: Acute Patient is an elderly patient who developed acute onset of episodic dizziness, characterized by a feeling of disequillibrium lasting few minutes associated with slight balance difficulty but no focal neurological deficits. non focal neurological examination, no nystagmus. MRI of brain and MRA of brain showed no abnormality that can explain his clinical symptoms. Laboratory studies showed no significant abnormality except mildly elevated creatinine level which would not cause such symptoms. Symptoms and signs are most consistent with positional vertigo, peripheral etiology. Would start him on short course of meclizine 12.5mg bid for one week only. Patient may benefit from outpatient ENT evaluation for hearing test, VNG and vestibular rehab if dizziness recurs. Please continue medical and supportive care. History of Present Illness Chief complaint: Dizziness HPI: Mr. Naranjo is a 87 year old male with PMH significant for CKD, HTN, who developed acute onset of dizziness. This was the first such episode. He woke up in the morning and as he was getting out of bed he experienced sudden onset of dizziness. no rooming spinning and no dizziness just that he feels that he could control his balance and that if he does not hold onto something he would fall. He hold onto the rail and kept still and after few minutes his dizziness gradually went away but when he walked he still felt dizzy. He denies any significant tinnitus, no hearing difficulty, no diplopia. No nausea and no vomiting. Initial CT of head was reported no acute intracranial abnormality. At the time of this interview, he is sitting in bed and eating comfortably. He states that he is not dizzy anymore but when he walks he is still slightly unsteady. Past Med Surg Social Fam HX - Past Medical History Medical history: diabetes, hypertension, renal disease, other (Gout) Psychiatric history: no psych history - Past Surgical History Surgical History: no surgical history - Social History Smoking Status: Never smoker Smokeless Tobacco Status: No Alcohol use: none Drug use: none - Family History Father Race: Family Member Ethnicity: Non- Living Status: Age at : 80 Cause of : VA Hx Family Cardiac Disorders: Yes (VA) Hx Family Endocrine Disorder: Yes (DM) Mother Race: Family Member Ethnicity: Non- Living Status: Age at : 89 Cause of : Gastric problems Hx Family GI Disorders: Yes (Gastric/bowel issues) Brother Race: Family Member Ethnicity: Non- Living Status: Age at : 50 Cause of : Suicide Hx Family Psychosocial Disorders: Yes (Depression/Suicide) Sister Race: Family Member Ethnicity: Non- Living Status: Cause of : Meningitis Medications and Allergies Allopurinol [Zyloprim 100 MG] 100 mg PO DAILY 02/05/18 [History] Aspirin [Lo-Dose Aspirin EC] 81 mg PO DAILY 02/05/18 [History] Atorvastatin [Lipitor] 10 mg PO DAILY 02/05/18 [History] Dicyclomine [Bentyl] 20 mg PO BID 02/05/18 [History] Docusate Sodium [Dok] 100 mg PO DAILY 02/05/18 [History] Ergocalciferol (VITAMIN D2) [Vitamin D] 400 unit PO DAILY 02/05/18 [History] Fish Oil/Dha/Epa [Fish Oil 1,200 mg Fish Oil] 1 cap PO DAILY 02/05/18 [History] Furosemide [Lasix] 20 mg PO DAILY 02/05/18 [History] Glucosamine/D3/Boswellia Roselia [Osteo Bi-Flex Tablet] 1 tab PO BID 02/05/18 [ History] Insulin Glargine,Hum.rec.anlog [Lantus Solostar] 10 - 20 unit SQ HS 02/05/18 [ History] Insulin LISPRO [Humalog Kwikpen U-100] 4 - 6 unit SQ TID 02/05/18 [History] Omeprazole [PriLOSEC] 20 mg PO DAILY 02/05/18 [History] amLODIPine [Norvasc] 5 mg PO DAILY 02/05/18 [History] 3 Allergy/AdvReac Type Severity Reaction Status Date / Time No Known Allergies Allergy Verified 02/05/18 11:38 All Systems: The remainder of the systems were reviewed and are negative Physical Examination - Vital Signs Vital Signs: Initial Vital Signs Temp Pulse Resp BP Pulse Ox 97.5 F L 55 18 178/110 96 02/05/18 09:49 02/05/18 09:49 02/05/18 09:49 02/05/18 09:49 02/05/18 09:49 - Constitutional General appearance: comfortable - Neurologic Detailed motor examination: full strength in all major muscle groups Motor examination - right side: 5/5: deltoids, biceps, triceps, wrist flexion, wrist extension, associate director of nursing, hip flexors, tibialis Anterior, quadriceps, toe extension (EHL), plantarflexion Motor examination - left side: 5/5: deltoids, biceps, triceps, wrist flexion, wrist extension, hip flexors, associate director of nursing, quadriceps, tibialis Anterior, toe extension (EHL), plantarflexion Reflexes: Biceps: 2+, Triceps: 2+, Brachioradialis: 2+, Patella: 2+, Achilles: 2 + Mental Status Examination: awake, alert, oriented to person, oriented to place, oriented to time, follows commands appropriately, answers questions appropriately, no agnosia, no aphasia, no aproxia Cranial nerve examination: PERRL, EOMI, visual moreno intact, corneal reflexes brisk symmetrically, sensory to face intact, mastication intact, no facial asymmetry is present, no dysarthria, hearing is intact symmetrically, soft palate elevates bilaterally upon phonation, gag reflex intact, flexes SCM and trapezius muscles symmetrically with full power, tongue protrudes midline, no atrophy or facial fasiculations present Cerebellar examination: no dysmetria, performs finger to nose and heel to haddad symmetrically without ataxia, no gait ataxia, no truncal ataxia, no difficulty with rapid alternating movements Results - Laboratory Findings CBC and BMP: 02/06/18 03:07 02/06/18 03:07 Abnormal lab findings: Abnormal lab results RBC 3.77 M/mcL (4.19-5.50) L 02/06/18 03:07 Hgb 12.5 g/dL (12.9-16.9) L 02/06/18 03:07 Hct 36.1 % (37.5-50.1) L 02/06/18 03:07 Chloride 109 mEq/L (98-107) H 02/06/18 03:07 BUN 34 mg/dL (8-23) H 02/06/18 03:07 Creatinine 1.31 mg/dL (0.70-1.30) H 02/06/18 03:07 Est GFR (Non-Af Amer) 52 (> 60) L 02/06/18 03:07 Glucose 67 mg/dL (70-105) L 02/06/18 03:07 POC Glucose 201 mg/dL (70-99) H 02/05/18 21:31 Hemoglobin A1c 8.1 % (-5.6) H 02/06/18 03:07 Alkaline Phosphatase 112 Units/L (34-104) H 02/06/18 03:07 Serum Total Protein 5.7 g/dL (6.4-8.9) L 02/06/18 03:07 Globulin 1.9 g/dL (2.4-3.5) L 02/06/18 03:07 - Diagnostic Findings Additional findings: EXAMINATION: MRA OF THE HEAD WITHOUT CONTRAST; MRI OF THE BRAIN WITHOUT CONTRAST 02/05/2018 2:07 pm TECHNIQUE: MRA of the head was performed utilizing [id number] imaging with MIP images. No intravenous contrast was administered.; Multiplanar multisequence MRI of the brain was performed without the administration of intravenous contrast. COMPARISON: None HISTORY: ORDERING SYSTEM PROVIDED HISTORY: Dizziness Additional tech notes: [email or web address]; ORDERING SYSTEM PROVIDED HISTORY: Dizziness FINDINGS: MRA brain: ANTERIOR CIRCULATION: The internal carotid arteries are normal in course and caliber without focal stenosis. The anterior cerebral and middle cerebral arteries demonstrate no focal stenosis. POSTERIOR CIRCULATION: The posterior cerebral arteries demonstrate no focal stenosis. The vertebral and basilar arteries appear unremarkable. MRI brain: There is no acute infarct. No mass, shift, or bleed is identified. There is mild diffuse cerebral volume loss. Normal expected signal voids are present within the vessels at the base of skull. There is a mild left and a trace right-sided mastoid effusion. MR/MR head/brain wo con IMPRESSION: No acute infarct. No flow limiting stenosis or branch occlusion detected within the head. EV/EV echocardiogram Impressions: Blood pressure at time of study, 187/77 mmHg. LVEF 60-65%. Not all LV wall segments were well visualized. Mild left ventricular diastolic dysfunction. Normal right ventricular structure and function. Mild tricuspid regurgitation. Mild pulmonary hypertension. Consult Discharge Plan - Plan Referrals: Lee Desai MD [Primary Care Provider] -
[2018-02-06] MEDS: 0.9 % Sodium Chloride 1,000 ML IVC SCH (13:03)
--- NOTE | 2018-02-06 16:49 | Internal Med Progress Note ---
Date of Encounter: 02/06/18 Time of Encounter: 16:49 - Assessment and plan (1) Dizziness Current Visit: Yes Status: Acute Assessment and plan: Acute dizziness/vertigo-type sx that began morning of arrival and worse with ambulation/standing. Head CT non-acute. Brain MRI negative for acute infarct. Head/neck MRA with no flow-limiting stenosis. Evaluated by neurology who did not feel symptoms were secondary to primary neurological etiology; possibly secondary to BPPV. Dizziness could also be secondary to orthostatic hypotension or sinus arrhythmia as noted below. Add when necessary meclizine. Cardiology workup as noted below. Consider ENT consult if symptoms persist/ recur. (2) Irregular heart beat Current Visit: Yes Status: Acute Assessment and plan: per hx. Now with dizziness that is worse with standing. Evaluated by cardiology who suspects orthostatic hypotension or sinus arrhythmia. Stop Lasix and Amlodipine. Start Carvedilol 3.125 mg BID, with hold parameters of SBP <100 and HR <45. Check HR response to walking to evaluate possible need for pacemaker. Cardiology following. (3) Headache Current Visit: Yes Status: Acute Assessment and plan: Acute headache r/t current dizziness and vertigo-type sx. Denies hx of TOM. CT of head/brain unremarkable. MRA/MRI of head/brain ordered. Stair-step pain medications for pain mgmt. Neurology consult ordered and discussed w/Dr. Sauer and I appreciate the consult. Qualifiers: Headache type: unspecified Headache chronicity pattern: acute headache Intractability: not intractable Qualified Code(s): R51 - Headache (4) Diabetes Current Visit: Yes Status: Chronic Assessment and plan: per hx. continue home long-acting insulin. SSI. 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 Home amlodipine stop per cardiology due to lower extremity edema. Low-dose carvedilol started. Monitor BP and titrate PRN Qualifiers: Hypertension type: essential hypertension Qualified Code(s): I10 - Essential (primary) hypertension (6) CKD (chronic kidney disease) stage 3, GFR 30-59 ml/min Current Visit: Yes Status: Chronic Assessment and plan: Hx of chronic CKD. Currently stage III w/GFR of 45 and creatinine of 1.46. Will use IV fluids judiciously and avoid nephrotoxins. Monitor I&O. (7) Gout Current Visit: Yes Status: Chronic Assessment and plan: Hx of chronic gout. Continue pts. Allopurinol. Qualifiers: Gout site: unspecified site Gout etiology: due to renal impairment Chronicity: unspecified Qualified Code(s): M10.30 - Gout due to renal impairment, unspecified site (8) HLD (hyperlipidemia) Current Visit: Yes Status: Chronic Assessment and plan: per hx. Cont statin Qualifiers: Hyperlipidemia type: pure hypercholesterolemia Qualified Code(s): E78.00 - Pure hypercholesterolemia, unspecified; E78.0 - Pure hypercholesterolemia (9) DVT prophylaxis Current Visit: Yes Status: Acute Assessment and plan: Heparin - Time Spent With Patient Total time spent is greater than 50% in coordination of care (as documented) at patient's floor/unit and/or counseling patient: - Subjective Interval history: Seen and examined at bedside, , patient is new to me. Information obtained from chart review and patient report. Patient says he feels weak and tired but overall better. Says the dizziness is almost completely gone. No palpitations. No vertigo. No chest pain or shortness of breath. - Constitutional Vitals: Temp Pulse Resp BP Pulse Ox 98.0 F 69 16 135/70 96 02/06/18 15:45 02/06/18 15:45 02/06/18 15:45 02/06/18 15:45 02/06/18 15:45 General appearance: Present: cooperative, A&O X 3, pleasant, no acute distress, answers questions appropriately - Head Head exam: Present: atraumatic, normocephalic - Eye Eye exam: Present: PERRL, conjuntiva pink, sclera anicteric Pupils: Present: PERRL - Neck Neck exam general surgery: Present: supple, trachea midline. Absent: lymphadenopathy - Respiratory Respiratory exam: Present: CTAB. Absent: accessory muscle use, rales, rhonchi, wheezes - Cardiovascular Cardiovascular exam: Present: RRR, +S1, +S2. Absent: diastolic murmur, gallop, rubs, systolic murmur - GI/Abdominal GI/Abdominal exam: Present: normal bowel sounds, soft, no peritoneal signs. Absent: distended, tenderness - Extremities Exam Extremities exam: Present: warm, radial pulses palpable and symmetrical. Absent : calf tenderness, cyanotic, pedal edema - Neurological Exam Neurological exam: Present: CN II-XII intact, oriented X3, no focal deficits. Absent: pronater drift, facial droop, speech deficit - Skin Skin exam: Present: dry, intact Internal Medicine: Result - Labs CBC & Chem 7: 02/06/18 03:07 02/06/18 03:07 Labs: Short CBC 02/06/18 Range/Units 03:07 WBC 10.0 (4.3-11.1) K/mcL Hgb 12.5 L (12.9-16.9) g/dL Hct 36.1 L (37.5-50.1) % Plt Count 216 (140-400) K/mcL Neutrophils # 5.6 (1.6-8.9) K/mcL BMP 02/06/18 03:07 Sodium 140 Potassium 3.5 Chloride 109 H Carbon Dioxide 25 BUN 34 H Creatinine 1.31 H Glucose 67 L Calcium 9.0 Liver Function 02/06/18 Range/Units 03:07 Total Bilirubin 0.5 (0.3-1.0) mg/dL AST 24 (13-39) Units/L ALT 25 (7-52) Units/L Alkaline Phosphatase 112 H (34-104) Units/L Albumin 3.8 (3.5-5.7) g/dL - Impressions Impressions Echocardiogram 02/05/18 13:33 Impressions: Blood pressure at time of study, 187/77 mmHg. LVEF 60-65%. Not all LV wall segments were well visualized. Mild left ventricular diastolic dysfunction. Normal right ventricular structure and function. Mild tricuspid regurgitation. Mild pulmonary hypertension. Left Ventricular Wall Motion: Rest Echo Findings The apex, apical inferior, mid inferior, basal inferior, apical anterior, mid anterior and basal anterior rothman were not visualized. All other wall segments showed normal motion. Findings: Study Quality * Technically adequate exam. ECG Findings * Sinus bradycardia. Left Ventricle * LVEF 60-65%. * Normal LV chamber size, wall thickness and function. * Mild left ventricular diastolic dysfunction. Right Ventricle * Normal right ventricular structure and function. Left Atrium * Normal left atrial size. Right Atrium * Normal right atrial size. Aortic Valve * Aortic valve not well visualized. * No aortic stenosis. * Trace aortic regurgitation. Mitral Valve * No mitral regurgitation. * Normal mitral valve structure. * No mitral stenosis. Tricuspid Valve * Tricuspid valve not well visualized. * Mild tricuspid regurgitation. * Estimated RA pressure is 3 mmHg. * Estimated RVSP is 37 mmHg. * Mild pulmonary hypertension. Pulmonic Valve * Pulmonic valve is not well visualized. * No pulmonic stenosis. * No pulmonic regurgitation. Pulmonary Artery * Pulmonary artery not well visualized. Aorta * Normally sized aortic root. * Ascending aorta not well visualized. Pericardium * There is no pericardial effusion present. Interatrial Septum * No evidence of PFO by color Doppler. IVC * Normal IVC dimensions and inspiratory collapse. Consult Discharge Plan - Plan Referrals: Lee Desai MD [Primary Care Provider] -
--- NOTE | 2018-02-06 17:01 | Electrocardiograph Report ---
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
--- NOTE | 2018-02-06 17:11 | Electrocardiograph Report ---
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
[2018-02-06] MEDS: Insulin DETEMIR 100 UNIT/ML X5UNITS SQ SCH (21:32)
[2018-02-07] MEDS: 0.9 % Sodium Chloride 1,000 ML IVC SCH (02:14)
[2018-02-07] MEDS: *HR* Heparin 5,000 UNIT/ML VIAL SQ SCH (05:45)
[2018-02-07 06:08] LABS: Basophils % 0.3 %; Eosinophils # 0.2 K/mcL (0.0-0.6); Eosinophils % 2.4 %; Hemoglobin 12.5 g/dL (12.9-16.9); Immature Granulocytes % 0.3 % (0-4); Lymphocytes # 2.3 K/mcL (0.6-4.6); Lymphocytes % 28.7 %; Mean Corpuscular HGB Conc 33.8 g/dL (31.6-35.5); Mean Corpuscular Hemoglobin 32.6 pg (28.0-33.3); Mean Corpuscular Volume 96.4 fL (83.0-100.0); Mean Platelet Volume 9.7 fL (9.4-12.4); Monocytes # 0.6 K/mcL (0.0-1.3); Monocytes % 8.2 %; Neutrophils # 4.7 K/mcL (1.6-8.9); Platelet Count 190 K/mcL (140-400); Red Blood Count 3.84 M/mcL (4.19-5.50); Red Cell Distribution Width 13.1 % (11.5-14.5); Segmented Neutrophils % 60.1 %
[2018-02-07 06:30] LABS: Albumin 3.6 g/dL (3.5-5.7); Albumin/Globulin Ratio 1.9 (1.1-2.2); Bilirubin,Total 0.6 mg/dL (0.3-1.0); Calcium 9.1 mg/dL (8.6-10.3); Globulin 1.9 g/dL (2.4-3.5); Potassium 4.2 mEq/L (3.5-5.1); Total Protein 5.5 g/dL (6.4-8.9)
[2018-02-07] MEDS: Insulin LISPRO 300 UNITS/3 ML VIAL SQ SCH ×2 (09:41→12:11)
[2018-02-07] MEDS: Aspirin Enteric Coated 81 MG Tablet PO SCH (10:23)
[2018-02-07] MEDS: Cholecalciferol (D-3) 1,000 UNIT TABLET PO SCH (10:24)
[2018-02-07] MEDS: (Fish Oil/Dha/Epa [Fish Oil 1,200 Mg Fish Oil] 1 CAP) PO SCH (10:26)
--- NOTE | 2018-02-07 10:33 | Cardiology Progress Note ---
<Naun Pickard - Last Filed: 02/07/18 13:00> Date of Encounter: 02/07/18 Time of Encounter: 08:50 Assessment and Plan (1) Pre-syncope Status: Acute Symptoms to to be secondary to orthostatic hypotension or sinus arrhythmia. Initial orthostatic vitals appear difficult to interpret, will recheck. - Repeat: lay 143/70, sit 168/79, stand 146/71, then 153/79 - mild dizziness upon standing MRI brain, CT head, chest x-ray showed no acute abnormalities. TTE: LVEF 60-65%, mild diastolic dysfunction, normal RV function EKG shows sinus arrhythmia with bradycardia - PAC's and non-specific ST changes Trop negative. No anemia or electrolyte abnormalities. Suspect this is likely related to orthostasis due to Norvasc and Lasix - he was swelling from taking Norvasc and then was started on Lasix for swelling Can not switch to DANIEL/ARB in setting of CKD. Will start low dose BB. Able to ambulate today with no symptoms and stable vitals Plan: - stop Lasix and Amlodipine - start Carvedilol 3.125 mg BID, with hold parameters of SBP <100 and HR <45 - ambulating well with no symptoms - cardiology will sign-off, reconsult as needed (2) Sinus arrhythmia Status: Acute EKG shows sinus arrhythmia with bradycardia - PAC's and non-specific ST changes PAC's noted on telemetry Plan as above (3) HTN (hypertension) Status: Chronic Change medications as above - BP better controlled on carvedilol Qualifiers: Hypertension type: essential hypertension Qualified Code(s): I10 - Essential (primary) hypertension (4) HLD (hyperlipidemia) Status: Chronic Continue statin Qualifiers: Hyperlipidemia type: pure hypercholesterolemia Qualified Code(s): E78.00 - Pure hypercholesterolemia, unspecified (5) CKD (chronic kidney disease) stage 3, GFR 30-59 ml/min Status: Chronic Discussion w patient/family: The assessment and plan as outlined above was discussed with the patient and/or family members who expressed understanding and agreement. All questions were answered. Thank you for involving us in the care of your patient. Please call with any questions. Subjective Principal diagnosis: Orthostatic Hypotension Interval history: Pt doing well today. Denies complaints. Reports that he was able to get up and go to the bathroom without dizziness or light-headedness. Denies chest pain/ pressure, dyspnea, palpitations, or LE edema. HR is chronically in the 40-50's, and had not dropped with Carvedilol addition. BP better controlled now. Encourage ambulation with assistance. Objective Vital Signs, Last 4 Hours Temp Pulse Resp BP Pulse Ox 02/07/18 08:05 98.5 F 46 14 122/93 95 General: Conversant, No Apparent Distress HEENT: Atraumatic, Normocephaly, Mucus Membranes Moist Neck: No JVD, Normal carotid pulses Cardiac: Reg Rate and Rhythm (with occassional ectopic beat), Normal S1 and S2, No Murmur Lungs: Normal Breath Sounds, No Wheeze, Rales, Rhonchi Neuro: Alert and responsive, No focal deficits noted Abdomen: Soft, Non-Tender Skin: No rashes noted on visualized skin Musculoskeletal: No Chest Wall Tenderness Extremities: No Clubbing, No Cyanosis, No Edema, Normal Pulses Results 02/07/18 05:48 02/07/18 05:48 Lab Results 02/07/18 02/07/18 05:48 05:48 WBC 7.8 Hgb 12.5 L Hct 37.0 L Plt Count 190 Sodium 140 Potassium 4.2 Chloride 109 H Carbon Dioxide 23 BUN 30 H Creatinine 1.43 H Glucose 177 H Calcium 9.1 Total Bilirubin 0.6 AST 23 ALT 21 Alkaline Phosphatase 108 H Consult Discharge Plan - Plan Referrals: Lee Desai MD [Primary Care Provider] - <Jacinto Campuzano - Last Filed: 02/11/18 19:58> Date of Encounter: 02/07/18 Time of Encounter: 17:00 Assessment and Plan Discussion w patient/family: The assessment and plan as outlined above was discussed with the patient and/or family members who expressed understanding and agreement. All questions were answered. Thank you for involving us in the care of your patient. Please call with any questions. Results 02/07/18 05:48 02/07/18 05:48 Attestation Statement - Attestation Attestation: I examined this patient and my medical decision-making was reviewed with the Resident Physician. I agree with the documented findings, disposition and treatment plan as described except to the extent set forth below. CC: dizzines with change in position Pt reports dizziness has resolved. PE: agree with findings as documented IMP 1. orthostatic hypotension has resolved. Increase activity as tolerated.
--- NOTE | 2018-02-07 11:11 | Neurology Progress Note ---
Date of Encounter: 02/07/18 Time of Encounter: 11:08 Assessment and Plan (1) Dizziness Current Visit: Yes Status: Acute Patient is an elderly patient who developed acute onset of episodic dizziness, characterized by a feeling of disequillibrium lasting few minutes associated with slight balance difficulty but no focal neurological deficits. non focal neurological examination, no nystagmus. MRI of brain and MRA of brain showed no abnormality that can explain his clinical symptoms. Laboratory studies showed no significant abnormality except mildly elevated creatinine level which would not cause such symptoms. Symptoms and signs are most consistent with positional vertigo, peripheral etiology. Would start him on short course of meclizine 12.5mg bid for one week only. Patient may benefit from outpatient ENT evaluation for hearing test, VNG and vestibular rehab if dizziness recurs. Please continue medical and supportive care. Will sign off at this time. Please call if any questions Subjective Principal diagnosis: dizziness Interval history: Patient seen and examined. He is feeling much better. No dizziness reported while in sitting position. While standing up he feels a little woozy but nothing like few days ago. Took one dose of meclizine and no side effects reports. Following cardiology for bradycardia and now rhythm is in 60-70's Objective - Constitutional Vitals: Temp Pulse Resp BP Pulse Ox 98.5 F 46 14 122/93 95 02/07/18 08:05 02/07/18 08:05 02/07/18 08:05 02/07/18 08:05 02/07/18 08:05 - Neurological Exam Motor Examination: Present: full strength in all major muscle groups Motor examination - left side: 5/5: deltoids, biceps, triceps, wrist flexion, wrist extension, hip flexors, rater associate, quadriceps, tibialis Anterior, toe extension (EHL), plantarflexion Mental Status Examination: Present: awake, alert, oriented to person, oriented to place, oriented to time, follows commands appropriately, answers questions appropriately, no agnosia, no aphasia, no aproxia Cranial nerve examination: Present: PERRL, EOMI, visual moreno intact, corneal reflexes brisk symmetrically, sensory to face intact, mastication intact, no facial asymmetry is present, no dysarthria, hearing is intact symmetrically, soft palate elevates bilaterally upon phonation, gag reflex intact, flexes SCM and trapezius muscles symmetrically with full power, tongue protrudes midline, no atrophy or facial fasiculations present Cerebellar examination: Present: no dysmetria, performs finger to nose and heel to [place] symmetrically without ataxia, no gait ataxia, no truncal ataxia, no difficulty with rapid alternating movements Results - Laboratory Findings CBC and BMP: 02/07/18 05:48 02/07/18 05:48 Abnormal lab findings: Abnormal lab results RBC 3.84 M/mcL (4.19-5.50) L 02/07/18 05:48 Hgb 12.5 g/dL (12.9-16.9) L 02/07/18 05:48 Hct 37.0 % (37.5-50.1) L 02/07/18 05:48 Chloride 109 mEq/L (98-107) H 02/07/18 05:48 BUN 30 mg/dL (8-23) H 02/07/18 05:48 Creatinine 1.43 mg/dL (0.70-1.30) H 02/07/18 05:48 Est GFR ( Amer) 56 (> 60) L 02/07/18 05:48 Est GFR (Non-Af Amer) 47 (> 60) L 02/07/18 05:48 Glucose 177 mg/dL (70-105) H 02/07/18 05:48 POC Glucose 181 mg/dL (70-99) H 02/06/18 16:41 Hemoglobin A1c 8.1 % (-5.6) H 02/06/18 03:07 Calculated Osmolality 301 (280-300) H 02/07/18 05:48 Alkaline Phosphatase 108 Units/L (34-104) H 02/07/18 05:48 Serum Total Protein 5.5 g/dL (6.4-8.9) L 02/07/18 05:48 Globulin 1.9 g/dL (2.4-3.5) L 02/07/18 05:48 Consult Discharge Plan - Plan Referrals: Lee Desai MD [Primary Care Provider] -
[2018-02-07 11:40] VITALS: BP 149/70
--- NOTE | 2018-02-07 13:35 | Discharge Summary ---
- NOTES TO OUTPATIENT PROVIDER Notes to Outpatient Provider: Mr Naranjo has BPPV and going to rehab Orders not resulted at time of discharge: Pending orders 02/07/18 09:15 TSH [Thyroid Stimulating Hormone] Routine Urinalysis Reflex Cult & Micro [URIN] Routine 02/08/18 04:00 BMP [Basic Metabolic Panel] AM 0400 Complete Blood Count [HEME] AM 0400 Complete Blood Count w/o Diff [HEME] AM 0400 Comprehensive Metabolic Panel AM 0400 02/09/18 04:00 BMP [Basic Metabolic Panel] AM 0400 Complete Blood Count [HEME] AM 0400 Complete Blood Count w/o Diff [HEME] AM 0400 Comprehensive Metabolic Panel AM 0400 02/10/18 04:00 BMP [Basic Metabolic Panel] AM 0400 Complete Blood Count w/o Diff [HEME] AM 0400 02/11/18 04:00 BMP [Basic Metabolic Panel] AM 0400 Complete Blood Count w/o Diff [HEME] AM 0400 Date of Encounter: 02/07/18 Time of Encounter: 13:32 - Discharge Diagnosis (1) BPPV (benign paroxysmal positional vertigo) Priority: Primary Status: Acute Qualifiers: Laterality: bilateral Qualified Code(s): H81.13 - Benign paroxysmal vertigo , bilateral (2) Dizziness Priority: Secondary Status: Resolved (3) Headache Priority: Secondary Status: Resolved Qualifiers: Headache type: unspecified Headache chronicity pattern: acute headache Intractability: not intractable Qualified Code(s): R51 - Headache (4) Diabetes Priority: Secondary Status: Chronic Qualifiers: Diabetes mellitus type: type 2 Diabetes mellitus jail insulin use: unspecified jail insulin use status Diabetes mellitus complication status : with unspecified complications Qualified Code(s): E11.8 - Type 2 diabetes mellitus with unspecified complications (5) HTN (hypertension) Priority: Secondary Status: Chronic Qualifiers: Hypertension type: essential hypertension Qualified Code(s): I10 - Essential (primary) hypertension (6) CKD (chronic kidney disease) stage 3, GFR 30-59 ml/min Priority: Secondary Status: Chronic (7) Gout Priority: Secondary Status: Chronic Qualifiers: Gout site: unspecified site Gout etiology: due to renal impairment Chronicity: unspecified Qualified Code(s): M10.30 - Gout due to renal impairment, unspecified site (8) HLD (hyperlipidemia) Priority: Secondary Status: Chronic Qualifiers: Hyperlipidemia type: mixed hyperlipidemia Qualified Code(s): E78.2 - Mixed hyperlipidemia Hospital course: Mr. Naranjo is a 87 year old male presented to ED with complaints of near syncope and dizziness. He was placed in observation for further evaluation and treatment. Mr Naranjo was placed in observation on med tele. He was evaluated by cardiology and meds adjusted. His Lasix was held and he received some IV fluids due to concern for dehydration. He was seen by neurology and felt to have BPPV. Meclizine started. Today he is moving better. He is less dizzy. He is afebrile and ready for discharge to SNF. Discharge discussed with: patient - Time Spent with Patient Total time spent providing and/or coordinating discharge services: 31min - Discharge Medications Home Medications: Allopurinol [Zyloprim 100 MG] 100 mg PO DAILY 02/05/18 [History] Aspirin [Lo-Dose Aspirin EC] 81 mg PO DAILY 02/05/18 [History] Atorvastatin [Lipitor] 10 mg PO DAILY 02/05/18 [History] Dicyclomine [Bentyl] 20 mg PO BID 02/05/18 [History] Docusate Sodium [Dok] 100 mg PO DAILY 02/05/18 [History] Ergocalciferol (VITAMIN D2) [Vitamin D] 400 unit PO DAILY 02/05/18 [History] Fish Oil/Dha/Epa [Fish Oil 1,200 mg Fish Oil] 1 cap PO DAILY 02/05/18 [History] Glucosamine/D3/Boswellia Roselia [Osteo Bi-Flex Tablet] 1 tab PO BID 02/05/18 [ History] Insulin Glargine,Hum.rec.anlog [Lantus Solostar] 10 - 20 unit SQ HS 02/05/18 [ History] Insulin LISPRO [Humalog Kwikpen U-100] 4 - 6 unit SQ TID 02/05/18 [History] Omeprazole [PriLOSEC] 20 mg PO DAILY 02/05/18 [History] Acetaminophen [Tylenol] 650 mg PO Q6HR PRN tablet 02/07/18 [Rx] Carvedilol [Coreg] 3.125 mg PO BIDWM tablet 02/07/18 [Rx] Meclizine [Antivert] 12.5 mg PO BID tablet 02/07/18 [Rx] Allergies/Adverse Reactions: 3 Allergy/AdvReac Type Severity Reaction Status Date / Time No Known Allergies Allergy Verified 02/05/18 11:38 Date of admission: 02/05/18 12:08 Primary care physician: Lee Desai MD Consults: 02/05/18 12:57 Consult to Occupational Therapy [CONS] Routine Comment: Evaluate, develop and implement POC Reason for Consult: Patient had new onset of dizziness and vertigo-type sx today. No hx of vertigo. Reports using cane PRN. States he had extreme difficulty w/ambulation today. Please assess patient for ambulation strength, safety, stability, and possible home assistive needs for post-discharge planning. Does patient have active BEDREST order?: Yes Is patient medically & hemodynamically stable?: Yes Patient assessed for mobility or mobilized this visit?: No Consult to Ct Tech [CONS] Routine Reason for SW Consult: Please assess patient for possible home needs for post -discharge planning. 02/05/18 12:59 Consult to Physical Therapy [CONS] Routine Comment: Evaluate, develop and implement POC Reason for Consult: Patient had new onset of dizziness and vertigo-type sx today. No hx of vertigo. Reports using cane PRN. States he had extreme difficulty w/ambulation today. Please assess patient for ambulation strength, safety, stability, and possible home assistive needs for post-discharge planning. Does patient have active BEDREST order?: Yes Is patient medically & hemodynamically stable?: Yes Patient assessed for mobility or mobilized this visit?: No 02/05/18 13:00 Consult to Neurology [CONS] Routine Consulting Provider: [facility] Reason for Consult: Patient had new onset of dizziness and vertigo-type sx today. No hx of vertigo. Reports using cane PRN. States he had extreme difficulty w/ ambulation today. Sx were present on sitting up and/or standing up. No hx of CVA/TIA/ Vertigo. CT of head unremarkable. MRA/MRI of head/brain ordered. Call Completed: Yes 02/05/18 13:35 Consult to Cardiology [CONS] Routine Comment: Consulting Provider: Cardiology Sadie Reason for Consult: Patient has new onset of dizziness/pre-syncope w/o hx of cardiac issues, CVA/TIA. Pt. does have irregular HR on exam that he states is transient and that he is not anticoagulated for. States he does have occasional palpitations that come and go. Echocardiogram ordered. Call Completed: Yes Discharging clinician: Bry Lynch Anticipated date of discharge: 02/07/18 - Constitutional Vitals: Temp Pulse Resp BP Pulse Ox 97.8 F 49 16 149/70 98 02/07/18 11:34 02/07/18 11:34 02/07/18 11:34 02/07/18 11:34 02/07/18 11:34 General appearance: Present: cooperative, A&O X 3, pleasant, answers questions appropriately - Head Head exam: Present: normocephalic - Eye Eye exam: Present: conjuntiva pink - ENT ENT exam: Present: mucous membranes dry - Respiratory Respiratory exam: Present: CTAB. Absent: rales, rhonchi, wheezes - Cardiovascular Cardiovascular exam: Present: RRR. Absent: tachycardia - GI/Abdominal GI/Abdominal exam: Present: normal bowel sounds, soft. Absent: tenderness - Extremities Exam Extremities exam: Present: warm. Absent: tenderness - Neurological Exam Neurological exam: Present: alert, oriented X3 - Skin Skin exam: Present: dry, warm - Patient Status Disposition: Transfer SNF Condition: Good Functional capacity at discharge: independent ambulation Overall status at discharge: patient is progressing back to baseline - Discharge Instructions Follow Up With: Lee Desai MD [Primary Care Provider] - - Diet and Activity Activity: as per physical therapy, increase activity as tolerated Diet: diabetic diet, low salt diet
--- NOTE | 2018-02-07 13:37 | Physician Discharge Referral ---
ExtendedCare Referral Info Transfer To: [facility] Provider in Charge after Transfer: PCP Institutional Level of Care: Skilled - Diagnosis (1) BPPV (benign paroxysmal positional vertigo) Priority: Primary Status: Acute (2) Dizziness Priority: Primary Status: Resolved (3) Headache Priority: Secondary Status: Resolved (4) Diabetes Priority: Secondary Status: Chronic (5) HTN (hypertension) Priority: Secondary Status: Chronic (6) CKD (chronic kidney disease) stage 3, GFR 30-59 ml/min Priority: Secondary Status: Chronic (7) Gout Status: Chronic (8) HLD (hyperlipidemia) Priority: Secondary Status: Chronic (9) Irregular heart beat Priority: Secondary Status: Resolved Prognosis: Good Aware of Diagnosis: Patient Aware of Prognosis: Patient - Transfer Medications Home Medications: Allopurinol [Zyloprim 100 MG] 100 mg PO DAILY 02/05/18 [History] Aspirin [Lo-Dose Aspirin EC] 81 mg PO DAILY 02/05/18 [History] Atorvastatin [Lipitor] 10 mg PO DAILY 02/05/18 [History] Dicyclomine [Bentyl] 20 mg PO BID 02/05/18 [History] Docusate Sodium [Dok] 100 mg PO DAILY 02/05/18 [History] Ergocalciferol (VITAMIN D2) [Vitamin D] 400 unit PO DAILY 02/05/18 [History] Fish Oil/Dha/Epa [Fish Oil 1,200 mg Fish Oil] 1 cap PO DAILY 02/05/18 [History] Glucosamine/D3/Boswellia Roselia [Osteo Bi-Flex Tablet] 1 tab PO BID 02/05/18 [ History] Insulin Glargine,Hum.rec.anlog [Lantus Solostar] 10 - 20 unit SQ HS 02/05/18 [ History] Insulin LISPRO [Humalog Kwikpen U-100] 4 - 6 unit SQ TID 02/05/18 [History] Omeprazole [PriLOSEC] 20 mg PO DAILY 02/05/18 [History] Acetaminophen [Tylenol] 650 mg PO Q6HR PRN tablet 02/07/18 [Rx] Carvedilol [Coreg] 3.125 mg PO BIDWM tablet 02/07/18 [Rx] Meclizine [Antivert] 12.5 mg PO BID tablet 02/07/18 [Rx] Allergies/Adverse Reactions: 3 Allergy/AdvReac Type Severity Reaction Status Date / Time No Known Allergies Allergy Verified 02/05/18 11:38 - Respiratory Orders None Smoking Cessation: Smoking cessation has been advised. For more information, call the [place] Tobacco Quit Line at 2-735-YJTK-NOW. - Lab Orders Lab Orders: 2 Step Mantoux Test per State regulation, CBC, Kar[place] 17 - Ancillary Orders May use pressure relief devices daily prn, May consult with Dentist, Material Stress Tester, Pick Up Operator PRN - Advance Directives Code Status: Full Code - Mobility Orders Ambulate - Rehabiliation Orders Rehab Potential: Good Rehab Orders: Evaluation for Physical Therapy, Evaluation for Occupational Therapy - Treatments Skin tear care topically daily PRN per policy, May check for fecal impaction rectally daily PRN, Fleet enema rectally every other day PRN cleansing purposes - Diet Orders No Concentrated Sweets, Cardiac CERTIFICATION: I certify that the transfer of the above named patient to an Extended Care Facility is necessary for the continuing treatment of the diagnosis listed. The above information is true and accurate reflection of patient's current condition. Confidential - Redisclosure prohibited without a patient's written consent.
== END 2018-02-07 14:55 ==
LOC: EMEROO 09:47 → 2SOUTHHOLD 09:47 → SUATTDRO 12:08 → 2SOUTHHOLD 12:22
PROVIDERS: ADMIT Internal Medicine; ATTEND Internal Medicine